=== PATIENT | female | born 1995 | race Caucasian/White ===

== ENCOUNTER 2025-02-05 18:09 | Inpatient (IN) | payer BC, SELFPAY ==
[2025-02-05] MEDS: ACETAMINOPHEN 500 MG TABLET 1000 MG PO ×2 (12:57→19:56)
[2025-02-05] MEDS: ONDANSETRON 2 MG/ML inj 4 MG IVP (12:57)
[2025-02-05 12:58] LABS: Appearance Urine Cloudy (Clear)
[2025-02-05] MEDS: LACTATED RINGERS 1000 ML 1,000 ML IV ×2 (12:58→15:51)
[2025-02-05 13:12] LABS: Trichomonas No Trichomonas Seen (None Seen)
[2025-02-05 13:16] VITALS: BP 108/62; PULSE 75; PULSE 77; RESP 16; TEMP 36.8; O2SAT 100
--- NOTE | 2025-02-05 13:29 | CRLHL7_ITS ---
For Patients: As a result of the Century Cures Act, medical imaging exams and procedure reports are released immediately into your electronic medical record. You may view this report before your referring provider. If you have questions, please contact your health care provider. INDICATION: Decelerations. TECHNIQUE: Ultrasound OB pelvis transabdominal. Real-time lau-scale imaging of the fetus was performed without stress testing. COMPARISON: None. FINDINGS: heart rate: Regular, 152 bpm. position: Vertex. Amniotic fluid volume single deepest pocket 5.8 cm, 2/2. Cine clips not provided, but per radarman the following were observed during the exam: motion 2/2. tone 2/2. breathing movements 2/2. Umbilical artery S/D ratio: Not measured. IMPRESSION: Viable fetus with no abnormality noted on limited exam. Amniotic fluid volume is within expected limits. motion, tone, and breathing movements documented as unremarkable by the radarman, but supporting cine clips not provided. Dictated by Jaiden Engel MD @ 02/05/2025 3:23:47 PM (Electronically Signed)
--- NOTE | 2025-02-05 15:41 | CRLHL7_ITS ---
For Patients: As a result of the Century Cures Act, medical imaging exams and procedure reports are released immediately into your electronic medical record. You may view this report before your referring provider. If you have questions, please contact your health care provider. Indication: Right lower quadrant pain. Technique: MRI of the abdomen without IV contrast appendix protocol for patient. Multiple axial, coronal and sagittal images were obtained including T1 and T2 weighted sequences. Fat-suppressed images were also obtained. Comparison: None Findings: The appendix is identified in the right lower quadrant and demonstrates normal caliber. No periappendiceal fat stranding or periappendiceal free fluid. No bowel obstruction is identified. Visualized portions of the liver, pancreas, spleen and gallbladder are unremarkable. Visualized portions of the adrenal glands are unremarkable. Moderate to severe right-sided hydronephrosis. There filling defects identified on 2 sequences however series 3 demonstrates no filling defect. These are likely related to flow related loss of signal within the ureter. There is compression of the mid to distal ureter between the right psoas and gravid uterus, likely the site of obstruction. No left hydronephrosis or hydroureter. No lymphadenopathy identified. Narrowing of the IVC is noted, otherwise visualized vasculature is unremarkable. Trace intra-abdominal free fluid. No intra-abdominal free air identified. Gravid uterus. Fetus is grossly unremarkable. Anterior placenta. No evidence of previa. Bladder is decompressed. Visualized osseous structures are unremarkable. Impression: 1. Appendix is within normal limits. No evidence of appendicitis. 2. Moderate to severe right-sided hydroureteronephrosis likely related to compression of the mid to distal ureter between the right psoas and uterus. Dictated by Bev Harden MD @ 02/05/2025 5:24:19 PM (Electronically Signed)
[2025-02-05] MEDS: CALCIUM CARBONATE 500 MG CHEW 2000 MG PO (15:50)
--- NOTE | 2025-02-05 15:58 | PM.OBLDTN ---
OB - Triage/Final Diagnosis Visit Information Time Seen by Provider: 15:58 Date Seen: 02/05/25 Date of evaluation: 02/05/25 Narrative: The patient is a 29 year old 3 para 2 at 36.2 weeks gestation by LMP and consistent with 9 week ultrasound, who presents with severe abdominal pain. Patient states she woke this morning feeling a bit off, but then developed severe abdominal and back pain that was so intense she had to call her father (FOB was at work) to help her with her kids. She has felt hot, but no fevers. She reports she had a large bowel movement followed by diarrhea this morning. Had some contractions, but the pain was constant. She denies bleeding, rupture of membranes, urinary symptoms. She has some back pain chronically in this end of , but feels this pain is significantly worse. She has nausea, no vomiting. Reports good movement. Evaluation Cervical dilation (cm): 1 Cervical effacement (%): 0 Laboratory results: Laboratory Tests 02/05/25 02/05/25 Range/Units Unknown 12:40 Urine Color Yellow (Yellow) Urine Appearance Cloudy A (Clear) Urine pH 6.5 (5.0-8.5) Ur Specific [place] 1.020 (1.000-1.030) Urine Protein 1+ A (Negative) Urine Glucose (UA) Negative (Negative) Urine Ketones 3+ A (Negative) Urine Blood 2+ A (Negative) Urine Nitrite Positive A (Negative) Urine Bilirubin Negative (Negative) Urine Urobilinogen 1.0 (0.2-1.0) Ur Leukocyte Esterase 3+ A (Negative) Urine RBC 5-10 A (0-2) Urine WBC 10-25 A (0-5) Urine WBC Clumps Few A (None) Ur Squamous Epith Cells Many A (None-Few) Urine Bacteria Many A (None) Vaginal Trichomonas No Trichomonas Seen (None Seen) Vaginal Yeast No Yeast Seen (None Seen) Vaginal Clue Cells <20% Clue Cells Seen A (None Seen) Group B Strep DNA Pending Vital signs: Vital Signs - 24 hr 02/05/25 13:16 02/05/25 13:16 Temperature 98.2 F Pulse Rate 75 Respiratory Rate 16 Blood Pressure 108/62 Pulse Oximetry 100 Fetus (Single) Heart Rate Baseline: 150 Assisted Variability: Moderate (6-25) Monitor Accelerations: Present
--- NOTE | 2025-02-05 16:03 | PM.OBHPAP1 ---
OB - H&P; HPI Antepartum History of Present Illness Time Seen by Provider: 16:03 Date Seen: 02/05/25 Chief complaint: Maternity Narrative: The patient is a 29 year old 3 para 2 at 36.2 weeks gestation by LMP and consistent with 9 week ultrasound, who presents with severe abdominal pain. Patient states she woke this morning feeling a bit off, but then developed severe abdominal and back pain that was so intense she had to call her father (FOB was at work) to help her with her kids. She has felt hot, but no fevers. She reports she had a large bowel movement followed by diarrhea this morning. Had some contractions, but the pain was constant. She denies bleeding, rupture of membranes, urinary symptoms. She has some back pain chronically in this end of , but feels this pain is significantly worse. She has nausea, no vomiting. Reports good movement. Comments: Presumed macrosomia History of Present Dating criteria: based on LMP (consistent with 9 week ultrasound) care: good care Ultrasounds: normal 1st trimester US and normal mid trimester US Abnormal ultrasound findings: Growth ultrasound shows 88%ile, abdominal circumference >98%ile. complications comment: abnormal 1 hour GTT, normal 3 hour GTT. Labs Blood type: O (+) positive Rubella: immune RPR/VDLR: nonreactive GBS status: unknown (collected today) HBsAG: negative Review of Systems Const: Denies: fever Cardio: Denies: chest pain, palpitations, edema or shortness of breath with exertion Resp: Denies: shortness of breath GI: Reports: abdominal pain, nausea and diarrhea; Denies: vomiting : Reports: pelvic pain; Denies: painful urination, blood in urine, vaginal bleeding or vaginal discharge Musculo: Reports: back pain Integ/Breast: Denies: rash Meds Home Medications and Allergies Allergies Allergy/AdvReac Type Severity Reaction Status Date / Time azithromycin Allergy Unknown Verified 02/05/25 17:52 OB - H&P: Exam Physical Exam: Vital signs: Temp Pulse Resp BP Pulse Ox 98.2 F 75 16 108/62 100 02/05/25 13:16 02/05/25 13:16 02/05/25 13:16 02/05/25 13:16 02/05/25 13:16 Constitutional: Constitutional: no acute distress Comments: appears uncomfortable Routine HEENT Exam: Head: Present atraumatic Routine Neck Exam: Neck: Present full ROM Detailed Neck Exam: Thyroids: Thyroid: Present normal Routine Respiratory Exam: Respiratory: Present CTA bilaterally Routine Cardiovascular Exam: Cardiovascular: RRR, S1 and S2 Routine Abdominal Exam: Abdominal: Present guarding, normal bowel sounds and tenderness (rlq abdominal tenderness with guarding) Comments: Gravid Detailed Labor and Delivery Exam: Patient Gravid: yes Dilation (cm): 1 Effacement (%): 0 Consistency: firm Contraction frequency (min): 3 Tachysystole: No Contraction intensity: Mild Routine Extremities Exam: Extremities: Absent calf tenderness Routine Back/Spine/Pelvis Exam: Back/Spine: full ROM Comments: tender in right lower back. No CVA tenderness Routine Skin Exam: Present intact Routine Neurological Exam: Present alert and oriented X3 Routine Psychiatric Exam: Present normal affect and normal thought process OB - Results Labs Labs: Urine 02/05/25 Range/Units Unknown Urine Color Yellow (Yellow) Urine Appearance Cloudy A (Clear) Urine pH 6.5 (5.0-8.5) Ur Specific [place] 1.020 (1.000-1.030) Urine Protein 1+ A (Negative) Urine Glucose (UA) Negative (Negative) Imaging MRI:: Attestation: I have reviewed the pertinent imaging results. Radiologist's impression: Impression: 1. Appendix is within normal limits. No evidence of appendicitis. 2. Moderate to severe right-sided hydroureteronephrosis likely related to compression of the mid to distal ureter between the right psoas and uterus. BPP: Radiologist's impression: BPP 8/8, normal fluid OB - A/P Antepartum Assessment and Plan (1) with 36 completed weeks gestation: Problem details: Patient has presented at 36 weeks gestation. Status: Acute Assessment and Plan: - 1 cm, thick, high. Is dalton some, palpating mild. Recheck is 1 cm, 60% (2) Abdominal pain affecting : Problem details: UA concerning for UTI, wet prep shows clue cells. However, very tender on RLQ. Discussed with general surgery who recommend MRI to rule out appendicitis. MRI shows right hydronephrosis thought to be 2/2 baby's position, but could be renal stone. Status: Acute Assessment and Plan: - start IV ceftriaxone now for urine - start PO flagyl now for BV - Cr and CBC now (3) Variable deceleration: Problem details: heart monitoring had 2.5 minute variable decel followed by period of tachycardia (180) and minimal variability. BPP 8/8, adequate fluid. Continuing to monitor well being Status: Acute Assessment and Plan: - continuous monitoring was reassuring x 4 hours. - will do NST qshift. (4) Hydronephrosis of right kidney: Problem details: MRI showed: Moderate to severe right-sided hydroureteronephrosis likely related to compression of the mid to distal ureter between the right psoas and uterus. Status: Acute Assessment and Plan: - cr and cbc now - pain control Plan - admit to observation. Patient is still in pain. Ddx includes hydronephrosis, pyelonephritis, musculoskeletal, hydroureteronephrosis. - start tylenol/hydroxyzine q6h prn for pain - monitoring qshift - IV fluids at maintenance - Cr and CBC now - Continue abx (Ceftriaxone was given tonight, PO flagyl started). Additional Plan Total time spent: 120 minutes
[2025-02-05] MEDS: cefTRIAXone 1 GM in 0.9 % SODIUM CHLORIDE Mini-bag 100 ML IVPB (17:02)
[2025-02-05 18:32] LABS: Hematocrit 35.7 % (33.0-51.0); Hemoglobin* 11.7 gm/dL (12.0-16.0); Immature Granulocytes Pct Auto 0.2 %; Mean Corpuscular HGB Conc 33 gm/dL (32-36); Mean Corpuscular Hemoglobin 30 pg (26-34); Mean Corpuscular Volume 91 fL (80-100); RDW Coefficient of Variation % 12.3 % (11.5-15.5); Red Blood Count 3.94 m/uL (4.00-5.20); White Blood Count* 11.15 K/uL (4.50-11.00)
[2025-02-05 18:39] LABS: Immature Granulocytes Abs Auto 0.00 K/uL (0.00-0.30); Lymphocytes Absolute Auto 1.00 K/uL (0.90-2.90); Slide Review Reflex No
[2025-02-05 18:57] LABS: Creatinine* 0.7 mg/dL (0.5-1.5); Estimated Glomerular Filt Rate 121 ml/min
[2025-02-05 19:59] VITALS: BP 110/71; PULSE 82; RESP 16; TEMP 36.6; O2SAT 98
[2025-02-05 23:23] VITALS: BP 99/64; PULSE 88; RESP 16; TEMP 36.8
[2025-02-06] VITALS (136 sets, daily range): BP systolic 100–115; BP diastolic 55–68; PULSE 80–115; RESP 16–18; TEMP 36.6–38.2; O2SAT 93–100
[2025-02-06] MEDS: LACTATED RINGERS 1000 ML 1,000 ML 925 ML IV (00:31)
[2025-02-06] MEDS: CALCIUM CARBONATE 500 MG CHEW PO ×3 (00:36→22:12)
[2025-02-06] MEDS: ONDANSETRON 2 MG/ML inj 4 MG IVP (00:37)
[2025-02-06] MEDS: PIPERACILLIN/TAZOBACTAM 3.375 GM in 0.9 % SODIUM CHLORIDE Mini-bag 100 ML IVPB ×4 (01:28→20:07)
[2025-02-06] MEDS: ACETAMINOPHEN 500 MG TABLET 1000 MG PO ×4 (02:02→19:07)
--- NOTE | 2025-02-06 07:47 | P.GYNPN_ITS ---
Progress Note: A&P Assessment and plan (1) Hydronephrosis of right kidney: Problem details: MRI showed: Moderate to severe right-sided hydroureteronephrosis likely related to compression of the mid to distal ureter between the right psoas and uterus. Spoke with urology who recommended further evaluation with CT abdo/pelvis w/o contrast stone protocol to determine if stone is present. Status: Acute (2) Variable deceleration: Problem details: heart monitoring had 2.5 minute variable decel followed by period of tachycardia (180) and minimal variability. BPP 8/8, adequate fluid. Continuous monitoring for now Status: Acute (3) with 36 completed weeks gestation: Problem details: Patient has presented at 36.2 weeks gestation. GBS pending. Complicated by macrosomia (98th percentile). Status: Acute (4) Abdominal pain affecting : Problem details: UA concerning for UTI, wet prep shows clue cells. However, very tender on RLQ. MRI shows right hydronephrosis thought to be 2/2 baby's position, but could be renal stone. Treated initially with ceftriaxone and flagyl, transitioned to zosyn. Tylenol and vistaril for pain. Can offer lidocaine patch. If severe, please page and can consider fentanyl and further evaluation for worsening symptoms. Status: Acute (5) Pyelonephritis affecting in third trimester: Problem details: Awaiting urine culture. On zosyn. Recommend at least 24 hours zosyn prior to transitioning to PO. I spoke with urology at [place] who recommended CT abdo/pelvis stone protocol to further differentiate obstruction. If stone, she likely will need a stent if we thought she was septic. If no stone and thought due to baby position then we have to determine if monitor in hospital until 37w vs induce/deliver. Status: Acute Plan - q24h CBC/BMP - Zosyn q6h, continue flagyl for BV for now. - CT abdo/pelvis wo stone protocol - If obstructing stone, will need to transfer to higher level of care for definitive management - If no stone, will discuss continue to monitor in hospital until 37w vs deliver - Continuous monitoring - Pain: tylenol, vistaril, lidocaine patch. If severe, contact provider. SHIPFITTER APPRENTICE- PN:Subj Non-OR Subjective Date Seen: 02/06/25 Interval history: Patient is a 29-year-old at 36 and 3 by LMP consistent with 9 week ultrasound to presented with severe abdominal pain and hospitalized for pyelonephritis and hydronephrosis in . Patient was initially started IV ceftriaxone p.o. Flagyl for BV. heart rate initially had variable decelerations with periodic tachycardia and minimal variability. BPP was 8/8 yesterday. MRI was performed to rule out appendicitis. It did show a right hydronephrosis but could be a renal stone. Overnight around midnight there was tachycardia to 200 beats per minute. Patient was given a dose Tylenol and IV fluid bolus.. Dr Gómez spoke with MPP who recommended to broaden antibiotics to Zosyn. MP recommended a consult Urology if patient did not have improvement in the morning. There was a tachycardia intermittently throughout the night into morning. Patient continues to have right flank pain that is somewhat managed with Tylenol and Vistaril. She no longer is having diarrhea. She is drinking fluids. SHIPFITTER APPRENTICE-PN: Obj Exam Physical Exam: Vital signs: Temp Pulse Resp BP Pulse Ox 98.2 F 81 16 109/62 100 02/06/25 05:31 02/06/25 06:02 02/05/25 23:23 02/06/25 06:02 02/06/25 07:45 Narrative: Gen: No acute distress, lying comfortably in bed CV: regular rate and rhythm Pulm: Breathing comfortably on room air, good air movement Abdo: Right flank, suprapubic and abdominal pain on exam FHT: moderate variability, baseline 155-165 bpm for the last 1 hour, accels present, no decels. Not dalton. Overnight had marked variability at times with HR max 200bpm, variable decels and accels. SHIPFITTER APPRENTICE - PN: Obj Data Labs Labs: Laboratory Results - last 24 hr 02/05/25 02/05/25 02/05/25 12:40 18:22 Unknown WBC 11.15 H RBC 3.94 L Hgb 11.7 L Hct 35.7 MCV 91 MCH 30 MCHC 33 RDW Coeff of Ayla 12.3 Plt Count 204 Neut % (Auto) 82.7 H Lymph % (Auto) 8.7 L [place] % (Auto) 8.2 Eos % (Auto) 0.0 Baso % (Auto) 0.2 Neut # (Auto) 9.20 H Lymph # (Auto) 1.00 [place] # (Auto) 0.90 Eos # (Auto) 0.00 Baso # (Auto) 0.00 Abs Immat Gran (auto) 0.00 Imm/Tot Granulo (auto) 0.2 Creatinine 0.7 Estimated GFR 121 Urine Color Yellow Urine Appearance Cloudy A Urine pH 6.5 Ur Specific [place] 1.020 Urine Protein 1+ A Urine Glucose (UA) Negative Urine Ketones 3+ A Urine Blood 2+ A Urine Nitrite Positive A Urine Bilirubin Negative Urine Urobilinogen 1.0 Ur Leukocyte Esterase 3+ A Urine RBC 5-10 A Urine WBC 10-25 A Urine WBC Clumps Few A Ur Squamous Epith Cells Many A Urine Bacteria Many A Vaginal Trichomonas No Trichomonas Seen Vaginal Yeast No Yeast Seen Vaginal Clue Cells <20% Clue Cells Seen A
[2025-02-06 09:14] LABS: Hematocrit 31.9 % (33.0-51.0); Hemoglobin* 10.5 gm/dL (12.0-16.0); Immature Granulocytes Abs Auto 0.04 K/uL (0.00-0.30); Immature Granulocytes Pct Auto 0.5 %; Mean Corpuscular HGB Conc 33 gm/dL (32-36); Mean Corpuscular Hemoglobin 30 pg (26-34); Mean Corpuscular Volume 91 fL (80-100); RDW Coefficient of Variation % 12.3 % (11.5-15.5); Red Blood Count 3.51 m/uL (4.00-5.20); White Blood Count* 8.83 K/uL (4.50-11.00)
[2025-02-06 09:15] LABS: Lymphocytes Absolute Auto 0.70 K/uL (0.90-2.90); Slide Review Reflex No
[2025-02-06 09:26] LABS: Chloride* 107 mmol/L (96-114)
[2025-02-06 09:27] LABS: Potassium* 3.9 mmol/L (3.6-5.1); Sodium* 133 mmol/L (135-149)
[2025-02-06 09:30] LABS: Anion Gap 6 mEq/L (7-15); Blood Urea Nitrogen* 5 mg/dL (5-24); Calcium* 8.7 mg/dL (8.4-10.6); Carbon Dioxide* 20 mmol/L (20-32); Creatinine* 0.7 mg/dL (0.5-1.5); Estimated Glomerular Filt Rate 121 ml/min; Glucose* 142 mg/dL (60-115)
--- NOTE | 2025-02-06 09:40 | CRLHL7_ITS ---
For Patients: As a result of the Century Cures Act, medical imaging exams and procedure reports are released immediately into your electronic medical record. You may view this report before your referring provider. If you have questions, please contact your health care provider. INDICATION: Thirty-six weeks with right flank pain and urinary tract dilatation seen on MRI. COMPARISON: Ob ultrasound 02/05/2025, MR abdomen 02/05/2025, prior CT abdomen pelvis 03/26/2014 TECHNIQUE: CT of the abdomen and pelvis without intravenous contrast. Multiplanar axial, coronal, and sagittal reformats were reconstructed. Contrast: None. FINDINGS: Lung bases: Normal. Liver: Normal. No mass. Gallbladder and bile ducts: Normal gallbladder. No bile duct dilation. Pancreas: Normal. Spleen: Normal. Adrenal glands: Normal. Kidneys: Normal overall renal size and position with a few areas of renal parenchymal scarring. There is not a contour deforming cyst or mass. There are 2 right renal calculi that measure 2 millimeters and 4 millimeters. There is right pelvicaliectasis with distention of both the peripheral and central calices. There is right ureterectasis. The right ureter is dilated to the level of the pelvic brim where it passes between the psoas muscle and the gravid uterus. The right distal ureter is not dilated. There are no calculi along the expected course of the right distal ureter. No left-sided urinary tract dilatation or left-sided urinary tract calculi. Urinary bladder: Partially filled and unremarkable. Pelvis: Gravid uterus. Single intrauterine gestation in cephalic presentation facing towards the maternal right. This examination is not tailored to assess the fetus. No major anatomic abnormalities are identified. Fetus generally consistent with a near term gestation. Amniotic fluid volume appears normal. The placenta is anterior. Maternal cervix not clearly delineated on this noncontrast examination. Vessels: Normal. Bowel: No dilated or inflamed bowel. Normal appendix. Moderate stool burden. Lymph nodes: No adenopathy. Peritoneum: No ascites. Abdominal wall: No hernia. Bones: No fractures. No focal worrisome bone lesions. IMPRESSION: Right pelvicaliectasis and proximal ureterectasis. There are some nonobstructing right intrarenal calculi but no ureteral calculi are seen. Urinary tract dilatation appears to be due to compression from the gravid uterus. Please note that all CT scans at this facility use dose modulation, iterative reconstruction, and/or weight-based dosing when appropriate to reduce radiation dose to as low as reasonably achievable. Dictated by Camila Saucedo MD @ 02/06/2025 10:47:21 AM (Electronically Signed)
[2025-02-06 12:08] LABS: Strep B DNA Probe Negative (Negative)
[2025-02-06 12:58] LABS: Strep B Susceptibility Needed? No
[2025-02-07] VITALS (11 sets, daily range): BP systolic 94–136; BP diastolic 52–76; PULSE 62–84; RESP 16–22; TEMP 36.3–37; O2SAT 96–99
[2025-02-07] MEDS: CALCIUM CARBONATE 500 MG CHEW PO ×2 (00:34→10:31)
[2025-02-07] MEDS: ACETAMINOPHEN 500 MG TABLET 1000 MG PO ×3 (00:57→21:48)
[2025-02-07] MEDS: PIPERACILLIN/TAZOBACTAM 3.375 GM in 0.9 % SODIUM CHLORIDE Mini-bag 100 ML IVPB ×4 (02:06→19:59)
--- NOTE | 2025-02-07 07:54 | P.GYNPN_ITS ---
Progress Note: A&P Assessment and plan (1) Pyelonephritis affecting in third trimester: Problem details: On zosyn for 29+ hours now. Overall clinically improving as per HPI. Recommend afebrile at least 24 hours and continued improvement prior to changing to oral abxs (last fever 2pm yesterday) Status: Acute (2) Hydronephrosis of right kidney: Problem details: MRI showed: Moderate to severe right-sided hydroureteronephrosis likely related to compression of the mid to distal ureter between the right psoas and uterus. CT without ureteral stone. Urology noted they would only stent if stone as this stage in . Status: Acute (3) with 36 completed weeks gestation: Problem details: Patient has presented at 36.4 weeks gestation. GBS negative. Complicated by macrosomia (98th percentile). Status: Acute (4) Abdominal pain affecting : Problem details: MRI shows right hydronephrosis thought to be 2/[address] negative for stone. Treated initially with ceftriaxone and flagyl, transitioned to zosyn. Tylenol and vistaril for pain. +urine culture ecoli live senstiive and wet prep +BV. Vaginal sxs resolved with treatment. Labs this am pending. Abdominal pain improving with current treatment. see above, continue same for now. IF afebrile >24 hours, continues to feel clinical improvement and FHT continue to be improved, would consider changing to oral abxs and possible d/c late today or tomorrow pending course. Status: Acute Time Spent With Patient Total time spent: 65min TUBE ROOM SUPERVISOR- PN:Subj Non-OR Subjective Time Seen by Provider: 07:30 Date Seen: 02/07/25 Interval history: Patient is a 29-year-old at 36 and 3 by LMP consistent with 9 week ultrasound to presented with severe right lower abdominal pain/right lower back pain and hospitalized for pyelonephritis and hydronephrosis in . Patient was initially started IV ceftriaxone p.o. Flagyl for BV. heart rate initially had variable decelerations with periodic tachycardia and minimal variability. BPP was 8/8 yesterday. MRI was performed to rule out appendicitis. It did show a right hydronephrosis but could be a renal stone. Overnight 02/05-02/06 there was tachycardia to 200 beats per minute. Patient was given a dose Tylenol, IV fluid bolus and Dr Gómez spoke with MPP who recommended to broaden antibiotics to Zosyn. Zosyn started 02/06/[address] Bergeron spoke with urology 02/07/24 morning and they rec CT to further evaluate for ureteral stone. CT did NOT show any ureteral stones and urology reported they would only rec stenting if ureteral stones present, see Dr Bergeron note for details. Case was also discussed with local ARTIST AND REPERTOIRE MANAGER provider solutions manager who recommended discussing with MPP further if pain thought from hydronephroureter and not improving as would need their recommendation if considering induction since . Pt reports this morning she is definitely feeling better then when she came into hospital. She notes the prev constant RLQ pain has basically resolved and only feels mildly at times with intermittent ctxs. These ctxs are random, come and go and no regular pattern or persistence. she reports she relates to contractions now and not like was when she came in. She reports her vaginal pain and swelling have resolved. Her right lower back pain and overall feeling is much better at t imes. says she feels good at times. However she notes it seems as when the tylenol starts to wear off she can still feel icky overall and pain in back will only be little better then. 'It goes in waves' Prev was constant. Currently she has not had tylenol for 6+ hours and reports feeling pretty good. Dysuria has resolved. she is tolerating orals, ambulating and voiding. tachycardia has resolved. TUBE ROOM SUPERVISOR-PN: Obj Exam Physical Exam: Vital signs: Temp Pulse Resp BP Pulse Ox 98.2 F 69 16 107/69 96 02/07/25 03:05 02/07/25 07:49 02/07/25 03:05 02/07/25 07:49 02/07/25 03:05 Constitutional: Constitutional: no acute distress and cooperative Routine Abdominal Exam: Abdominal: Absent rebound or tenderness Comments: uterus gravid, Nttp. No abd ttp. Routine Exam: External: Present normal external exam; Absent tenderness or swelling Comments: Gentle bimanual nttp. gentle exam cervix external os 1cm, thick,-3. Additional findings: Additional findings: FHT's 120's moderate variability, +accels, occ variable, improved from prior TUBE ROOM SUPERVISOR - PN: Obj Data Labs Labs: Laboratory Results - last 24 hr 02/05/25 02/06/25 12:40 09:07 WBC 8.83 RBC 3.51 L Hgb 10.5 L Hct 31.9 L MCV 91 MCH 30 MCHC 33 RDW Coeff of Ayla 12.3 Plt Count 187 Neut % (Auto) 84.3 H Lymph % (Auto) 8.2 L [place] % (Auto) 6.7 Eos % (Auto) 0.1 Baso % (Auto) 0.2 Neut # (Auto) 7.40 H Lymph # (Auto) 0.70 L [place] # (Auto) 0.60 Eos # (Auto) 0.01 Baso # (Auto) 0.02 Abs Immat Gran (auto) 0.04 Imm/Tot Granulo (auto) 0.5 Sodium 133 L Potassium 3.9 Chloride 107 Carbon Dioxide 20 Anion Gap 6 L BUN 5 Creatinine 0.7 Estimated GFR 121 Glucose 142 H Calcium 8.7 Group B Strep DNA Negative
[2025-02-07 08:19] LABS: Hematocrit 31.4 % (33.0-51.0); Hemoglobin* 10.1 gm/dL (12.0-16.0); Immature Granulocytes Abs Auto 0.07 K/uL (0.00-0.30); Immature Granulocytes Pct Auto 1.1 %; Mean Corpuscular HGB Conc 32 gm/dL (32-36); Mean Corpuscular Hemoglobin 30 pg (26-34); Mean Corpuscular Volume 93 fL (80-100); RDW Coefficient of Variation % 12.8 % (11.5-15.5); Red Blood Count 3.37 m/uL (4.00-5.20); White Blood Count* 6.34 K/uL (4.50-11.00)
[2025-02-07 08:26] LABS: Lymphocytes Absolute Auto 1.10 K/uL (0.90-2.90); Slide Review Reflex No
[2025-02-07 08:39] LABS: Chloride* 111 mmol/L (96-114); Potassium* 3.7 mmol/L (3.6-5.1); Sodium* 134 mmol/L (135-149)
[2025-02-07 08:40] LABS: Albumin* 2.8 g/dL (3.3-5.0)
[2025-02-07 08:42] LABS: Anion Gap 5 mEq/L (7-15); Blood Urea Nitrogen* 3 mg/dL (5-24); Calcium* 8.5 mg/dL (8.4-10.6); Carbon Dioxide* 18 mmol/L (20-32); Creatinine* 0.6 mg/dL (0.5-1.5); Estimated Glomerular Filt Rate 125 ml/min; Glucose* 74 mg/dL (60-115)
[2025-02-07 08:43] LABS: Alanine Aminotransferase* 38 U/L (4-35); Alkaline Phosphatase* 121 U/L (40-150); Aspartate Amino Transferase* 79 U/L (12-35); Bilirubin Direct* 0.2 mg/dL (0.0-0.5); Bilirubin Total* 0.6 mg/dL (0.1-1.5); Total Protein* 5.6 g/dL (6.0-8.3)
[2025-02-07] MEDS: SUCRALFATE 1 GM TABLET PO ×2 (16:43→19:59)
--- NOTE | 2025-02-07 18:13 | P.OBPN_ITS ---
Subjective Time Seen by Provider: 18:14 Date Seen: 02/07/25 Narrative: Pt seen this evening for follow up. Pt reports midmorning right lower back pain seemed more constant and similar to when came into triage. Other symptoms remained improved but the pain in right lower back seemed similar to arrival again. I discussed with pt via phone from clinic at that time. Reviewed pain and making sure not sign of worsening infection or other etiology. Discussed pain control. Decision to stop scheduled tylenol to help know if actual fevers and try oxycodone 5mg [id number] for severe pain. Pt agreed to let us know if felt like pain worsening. 5mg oxycodone was helpful in making pain more tolerable and pt reports worked well for 2-3 hours then pain started increasing and nursing requested more frequent dosing oxycodone. Decision to try 5mg oxycodone with hydroxyzine and may give q4-6 hours but aim for [id number] as needed. Pt got first combo dose 5 hours after the initial oxycodone. Pt reports tonight this made pain much more tolerable. RN reports she seems to be doing better this afternoon. Pt reports overall not feeling 'sick' today like yesterday. Right lower back pain has constant component but then is more intense at times. Overall she feels like things are improving but at times pain can still be intense she says. pt does feel irregular contractions, nothing regular or persistent No fevers today. No tachycardia today. Last fever 2pm on 02/06/25 First dose IV Zosyn around 2am 02/06/[address] showing ureteralhydronephrosis from gravid uterus, see prior hospital notes and CT below Recent CT Kidneys: Normal overall renal size and position with a few areas of renal parenchymal scarring. There is not a contour deforming cyst or mass. There are 2 right renal calculi that measure 2 millimeters and 4 millimeters. There is right pelvicaliectasis with distention of both the peripheral and central calices. There is right ureterectasis. The right ureter is dilated to the level of the pelvic brim where it passes between the psoas muscle and the gravid uterus. The right distal ureter is not dilated. There are no calculi along the expected course of the right distal ureter. No left-sided urinary tract dilatation or left-sided urinary tract calculi. Urinary bladder: Partially filled and unremarkable. Pelvis: Gravid uterus. Single intrauterine gestation in cephalic presentation facing towards the maternal right. This examination is not tailored to assess the fetus. No major anatomic abnormalities are identified. Fetus generally consistent with a near term gestation. Amniotic fluid volume appears normal. The placenta is anterior. Maternal cervix not clearly delineated on this noncontrast examination. Vessels: Normal. Bowel: No dilated or inflamed bowel. Normal appendix. Moderate stool burden. Lymph nodes: No adenopathy. Peritoneum: No ascites. Abdominal wall: No hernia. Bones: No fractures. No focal worrisome bone lesions. IMPRESSION: Right pelvicaliectasis and proximal ureterectasis. There are some nonobstructing right intrarenal calculi but no ureteral calculi are seen. Urinary tract dilatation appears to be due to compression from the gravid uterus. Objective Vital Signs: Last Vital Signs Temp 97.5 F L 02/07/25 15:35 Pulse 64 02/07/25 15:35 Resp 22 02/07/25 15:35 BP 106/60 02/07/25 15:35 Pulse Ox 99 02/07/25 15:35 Contractions Contraction pattern: Irregular Contraction intensity: Mild Assessment Heart Rate Baseline: 150 Prison Variability: Moderate (6-25) Monitor Accelerations: Present Monitor Decelerations: Variable Plan Plan: Assessment and plan at 36 4/7wks gestation admitted with severe RLQ and right lower back pain, evaluated with labs, urine, US, MRI and CT and found to have pyelonephritis with hydroureteronephrosis. CT without ureteral stone. Urology noted since hydroureteronephrosis not from stone and instead from gravid uterus and close to term, they would not place stent. (1) Pyelonephritis affecting in third trimester: Problem details: On zosyn for 40+ hours now. Overall clinically improving (afebrile, tachycardia resolved, RLQ pain resolved, Dysuria and vaginal pain resolved). Per UTD, rec afebrile at least 48 hours and continued improvement prior to changing to oral abxs (last fever 2pm yesterday). Urine culture pansenstivie and rec switch to betalactam (likely cefdinir) after afebrile 48 hours. Status: Acute (2) Hydroureteronephrosis: Problem details: MRI showed: Moderate to severe right-sided hydroureteronephrosis likely related to compression of the mid to distal ureter between the right psoas and uterus. CT without ureteral stone. Urology noted they would only stent if stone as this stage in . Pyelonephritis sxs clinically improving overall but with persistent Right lower back pain thought from hydroureteronephrosis. Again discussed risks vs benefits narcotics in for mom and fetus/. Discussed with [facility] nelda Meade regarding all above, pain control and timing of induction if continues to require narcotics. She reported if urology thought hydroureteronephrosis from and requiring narcotics, reasonable and okay to induce at 37wks. discussed with patient risks vs benefits of induction at 37wks and pt would like to pursue if still having pain requiring oxycodone. If so, plan cervical ripening Tuesday evening with Nikunj and induction Tuesday morning with Dr Lane. Status: Acute (3) with 36 completed weeks gestation: Problem details: Currently 36.4 weeks gestation. GBS negative. Complicated by macrosomia (98th percentile). Status: Acute (4) Abdominal pain affecting : Problem details: see above and prior notes. (5) Elevated AST: suspect unrelated to pain. No prior for comparison. BP's wnl. Plan recheck in am. Continue IV abx until afebrile 48 hours then plan transition to cefdinir Continue oxycodone and hydroxyzine q4-6 hours as needed. Recheck labs in morning If continues to improve, possible d/c later tomorrow with cervical ripeni ng/induction scheduled Tuesday/Tuesday if continues to need oxycodone for pain control
[2025-02-07] MEDS: LIDOCAINE 5% PATCH 1 PATCH TRANSDERMA (22:14)
[2025-02-07] MEDS: ONDANSETRON 2 MG/ML inj 4 MG IVP (22:17)
[2025-02-07] MEDS: SODIUM CHLORIDE 0.9 % (FLUSH) 10 ML SYRINGE IVF (22:35)
[2025-02-08] VITALS (9 sets, daily range): BP systolic 103–117; BP diastolic 57–75; PULSE 56–75; RESP 16–18; TEMP 36.3–37.3; O2SAT 96–99
[2025-02-08] MEDS: PIPERACILLIN/TAZOBACTAM 3.375 GM in 0.9 % SODIUM CHLORIDE Mini-bag 100 ML IVPB ×3 (02:24→13:44)
[2025-02-08] MEDS: CALCIUM CARBONATE 500 MG CHEW PO (03:52)
[2025-02-08] MEDS: ONDANSETRON 2 MG/ML inj 4 MG IV (03:55)
[2025-02-08 06:38] LABS: Hematocrit 32.7 % (33.0-51.0); Hemoglobin* 10.6 gm/dL (12.0-16.0); Immature Granulocytes Abs Auto 0.03 K/uL (0.00-0.30); Immature Granulocytes Pct Auto 0.5 %; Lymphocytes Absolute Auto 1.29 K/uL (0.90-2.90); Mean Corpuscular HGB Conc 32 gm/dL (32-36); Mean Corpuscular Hemoglobin 30 pg (26-34); Mean Corpuscular Volume 92 fL (80-100); RDW Coefficient of Variation % 12.8 % (11.5-15.5); Red Blood Count 3.57 m/uL (4.00-5.20); White Blood Count* 5.52 K/uL (4.50-11.00)
[2025-02-08 06:41] LABS: Slide Review Reflex No
[2025-02-08 06:56] LABS: Chloride* 109 mmol/L (96-114); Potassium* 3.7 mmol/L (3.6-5.1); Sodium* 134 mmol/L (135-149)
[2025-02-08 06:59] LABS: Alanine Aminotransferase* 40 U/L (4-35); Anion Gap 6 mEq/L (7-15); Aspartate Amino Transferase* 63 U/L (12-35); Blood Urea Nitrogen* 3 mg/dL (5-24); Calcium* 8.8 mg/dL (8.4-10.6); Carbon Dioxide* 19 mmol/L (20-32); Creatinine* 0.6 mg/dL (0.5-1.5); Estimated Glomerular Filt Rate 125 ml/min; Glucose* 81 mg/dL (60-115)
--- NOTE | 2025-02-08 07:45 | P.OBPN_ITS ---
Subjective Date Seen: 02/08/25 Narrative: Pt seen this morning. Had severe pain 8/10 overnight. Typically happens at night. She was given 5mg oxycodone and hydroxyzine and subsequently another 5mg oxycodone, tylenol and lidocaine patch. She states she fell asleep and pain was better when she woke up. She continues to be afebrile. No tachycardia overnight. Her creatinine is normal. White count has normalized. She has elevated AST/ALT with improvement from yesterday, unknown baseline. Last fever 2pm on 02/06/25. First dose IV Zosyn around 2am 02/06/25. Objective Exam: FHT: Category [], [Moderate] Variability. [Positive] Accels. [No] decels. Baseline []. [place]: Ctx q[] min, [pitocin rate] SVE: [] cm / [] % / -[] / [vertex] Vital Signs: Last Vital Signs Temp 97.4 F L 02/08/25 07:04 Pulse 68 02/08/25 06:58 Resp 20 02/07/25 23:00 BP 111/69 02/08/25 06:58 Pulse Ox 96 02/08/25 02:54 Contractions Contraction pattern: Irregular Contraction intensity: Mild Assessment Assessment: active labor Heart Rate Baseline: 150 Monitor Accelerations: Present Monitor Decelerations: Variable Plan Plan: - Continue current cares. - Analgesia PRN. - Anticipate .
[2025-02-08 08:09] LABS: Hematocrit 32.9 % (33.0-51.0); Hemoglobin* 10.7 gm/dL (12.0-16.0); Immature Granulocytes Abs Auto 0.03 K/uL (0.00-0.30); Immature Granulocytes Pct Auto 0.5 %; Lymphocytes Absolute Auto 1.42 K/uL (0.90-2.90); Mean Corpuscular HGB Conc 33 gm/dL (32-36); Mean Corpuscular Hemoglobin 30 pg (26-34); Mean Corpuscular Volume 92 fL (80-100); RDW Coefficient of Variation % 12.9 % (11.5-15.5); Red Blood Count 3.56 m/uL (4.00-5.20); White Blood Count* 5.52 K/uL (4.50-11.00)
[2025-02-08 08:35] LABS: Chloride* 108 mmol/L (96-114)
[2025-02-08 08:36] LABS: Potassium* 3.8 mmol/L (3.6-5.1); Sodium* 134 mmol/L (135-149)
[2025-02-08 08:39] LABS: Anion Gap 5 mEq/L (7-15); Blood Urea Nitrogen* 4 mg/dL (5-24); Calcium* 8.7 mg/dL (8.4-10.6); Carbon Dioxide* 21 mmol/L (20-32); Creatinine* 0.7 mg/dL (0.5-1.5); Estimated Glomerular Filt Rate 121 ml/min; Glucose* 74 mg/dL (60-115)
[2025-02-08 08:40] LABS: Slide Review Reflex No
[2025-02-08 08:51] LABS: Blood Urea Nitrogen* 4 mg/dL (5-24); Creatinine* 0.7 mg/dL (0.5-1.5); Estimated Glomerular Filt Rate 121 ml/min
[2025-02-08] MEDS: SUCRALFATE 1 GM TABLET PO ×2 (09:58→13:44)
--- NOTE | 2025-02-08 14:31 | REH.PT ---
Order for trial of brace or taping from PT received. Patient chose taping and PT obtained KT Gold and used space correction technique over symptomatic right SIJ with instructions to remove if itching and limit soaking and patient and given instruction on how to repeat taping technique and extra tape if the technique is helpful and she wants to retape. No charge for visit as no formal evaluation done and patient is I in transfers out of bed and ambulating without a device.
--- NOTE | 2025-02-08 14:33 | P.DS_ITS ---
DS: Providers Provider Date Seen: 02/08/25 Date of admission: 02/07/25 09:32 Primary care physician: Khushboo Lane MD Admitting Clinician: Sade Gómez MD Consults: 02/08/25 08:09 Consult to Physical Therapy [CONS] Routine Comment: would a belt/kinesotape be helpful for r back pain Reason(s) for PT Consult:: Pain Any Restrictions?:: No Restrictions Attending Physician on discharge: Nieves Bergeron MD Date of Discharge: 02/08/25 DS: Diagnosis Discharge Diagnosis (1) Pyelonephritis affecting in third trimester: Status: Acute Problem details: Last fever at 2pm on 02/06. On zosyn for 48+ hours. Urine culture with live- sensitive E coli. Transition to complete total 10-day course of antibiotics on cefdinir. Overall clinically improving. Pain persists. (2) Hydronephrosis of right kidney: Status: Acute Problem details: MRI/CT showed: Moderate to severe right-sided hydroureteronephrosis likely related to compression of the mid to distal ureter between the right psoas and uterus. CT without ureteral stone. Urology noted they would only stent if stone at this stage in . (3) with 36 completed weeks gestation: Status: Acute Problem details: Patient had presented at 36.4 weeks gestation. GBS negative. Complicated by macrosomia (98th percentile). (4) Abdominal pain affecting : Status: Acute Problem details: MRI/CT shows right hydroureteronephrosis thought to be 2/[address] negative for stone. Pain is limiting and requiring Q6H oxycodone to manage. PT consulted for MSK support. (5) Bacterial vaginosis in : Status: Acute Problem details: Complete a 7-day course of PO BID metronidazole Discharge Plan Discharge Disposition: Home, Self-Care Date of Admission: 02/07/25 09:32 Attending Provider on Discharge: Nieves Bergeron Primary Care Provider: Khushboo Lane Condition: Improved Anticipated Discharge Date/Time: 02/08/25 14:39 Discharge Medications: New metronidazole 500 mg Tablet 500 mg PO Q12H 4 Days Qty: 8 0RF oxycodone 5 mg Tablet 5 mg PO Q4H PRN (Reason: For SEVERE Pain) 3 Days Qty: 12 0RF cefdinir 300 mg capsule 300 mg PO BID 8 Days Qty: 16 0RF Discharge Orders: Discharge Order (Routine); Ordered 02/08/25 Ordered By: Nieves Bergeron Patient Education: Kidney Infection (DC) Additional Instructions: Please start oral antibiotics at home. Take both cefdinir and metronidazole at around 9:30PM tonight then twice daily until gone. For pain control: recommend tylenol 1000mg every 6 hours as needed, lidocaine patch over the counter (ex: Salonpas), and oxycodone 5mg every 6 hours as needed. If you are needing the oxycodone regularly due to pain, then we will move forward with induction on Tuesday (02/10). Plan is to place a Cook catheter. Activity Level: Activity as Tolerated Discharge Diet: Regular Follow Up Appointments: Khushboo Lane MD [Primary Care Provider, [facility]] Forms: Patient Belongings, [facility] Info Instructions Hospital Course Course Hospital Course: at 36 4/7wks gestation admitted with severe RLQ and right lower back pain, evaluated with labs, urine, US, MRI and CT and found to have pyelonephritis with hydroureteronephrosis. CT without ureteral stone. Urology noted since hydroureteronephrosis not from stone and instead from gravid uterus and close to term, they would not place stent. Patient was afebrile for 48 hours before transition for IV to PO antibiotics. Patient pain not fully controlled with tylenol required oxycodone. PT consulted to provide pain support for symptomatic right SIJ, taping performed. Case discussed with MPP who stated if pain persisted with necessity for opioid pain control and hydroureteronephrosis related to , ok for IOL at 37 weeks gestation. Plan to induce patient on 02/10 at 37 weeks GA via Cook catheter. If pain improves and is not requiring oxycodone at home, plan to hold cancel induction with close follow-up in clinic. Based on Up-to-date, if patient remains she should be on antibiotic prophylaxis until delivery to prevent recurrence of pyelonephritis. Pt seen this morning. Had severe pain 8/10 overnight. Typically happens at night. She was given 5mg oxycodone and hydroxyzine and subsequently another 5mg oxycodone, tylenol and lidocaine patch. She states she fell asleep and pain was better when she woke up. She continues to be afebrile. No tachycardia overnight. Her creatinine is normal. White count has normalized. She has elevated AST/ALT with improvement from yesterday, unknown baseline. Not felt to be related to current presentation. Last fever 2pm on 02/06/25. First dose IV Zosyn around 2am 02/06/25. Labs Labs: Laboratory Tests 02/08/25 02/08/25 02/08/25 Range/Units 08:19 08:03 06:25 WBC 5.52 5.52 (4.50-11.00) K/uL RBC 3.56 L 3.57 L (4.00-5.20) m/uL Hgb 10.7 L 10.6 L (12.0-16.0) gm/dL Hct 32.9 L 32.7 L (33.0-51.0) % MCV 92 92 (80-100) fL MCH 30 30 (26-34) pg MCHC 33 32 (32-36) gm/dL RDW Coeff of Ayla 12.9 12.8 (11.5-15.5) % Plt Count 180 179 (140-440) K/uL Neut % (Auto) 60.0 63.4 (42.0-72.0) % Lymph % (Auto) 25.7 23.4 (20-44) % [place] % (Auto) 12.1 H 11.1 H (0.0-11.0) % Eos % (Auto) 1.3 1.4 (0.0-7.0) % Baso % (Auto) 0.4 0.2 (0.0-3.0) % Neut # (Auto) 3.31 3.50 (1.7-7.0) K/uL Lymph # (Auto) 1.42 1.29 (0.90-2.90) K/uL [place] # (Auto) 0.70 0.60 (0.00-0.90) K/UL Eos # (Auto) 0.07 0.08 (0.00-0.50) K/uL Baso # (Auto) 0.02 0.01 (0.00-0.30) K/uL Abs Immat Gran (auto) 0.03 0.03 (0.00-0.30) K/uL Imm/Tot Granulo (auto) 0.5 0.5 % Sodium 134 L 134 L (135-149) mmol/L Potassium 3.8 3.7 (3.6-5.1) mmol/L Chloride 108 109 (96-114) mmol/L Carbon Dioxide 21 19 L (20-32) mmol/L Anion Gap 5 L 6 L (7-15) mEq/L BUN 4 L 4 L 3 L (5-24) mg/dL Creatinine 0.7 0.7 0.6 (0.5-1.5) mg/dL Estimated GFR 121 121 125 ml/min Glucose 74 81 (60-115) mg/dL Calcium 8.7 8.8 (8.4-10.6) mg/dL Total Bilirubin (0.1-1.5) mg/dL Direct Bilirubin (0.0-0.5) mg/dL AST 63 H (12-35) U/L ALT 40 H (4-35) U/L Alkaline Phosphatase (40-150) U/L Total Protein (6.0-8.3) g/dL Albumin (3.3-5.0) g/dL Urine Color (Yellow) Urine Appearance (Clear) Urine pH (5.0-8.5) Ur Specific [place] (1.000-1.030) Urine Protein (Negative) Urine Glucose (UA) (Negative) Urine Ketones (Negative) Urine Blood (Negative) Urine Nitrite (Negative) Urine Bilirubin (Negative) Urine Urobilinogen (0.2-1.0) Ur Leukocyte Esterase (Negative) Urine RBC (0-2) Urine WBC (0-5) Urine WBC Clumps (None) Ur Squamous Epith Cells (None-Few) Urine Bacteria (None) Vaginal Trichomonas (None Seen) Vaginal Yeast (None Seen) Vaginal Clue Cells (None Seen) Group B Strep DNA (Negative) 02/07/25 02/06/25 02/05/25 Range/Units 08:13 09:07 Unknown WBC 6.34 8.83 (4.50-11.00) K/uL RBC 3.37 L 3.51 L (4.00-5.20) m/uL Hgb 10.1 L 10.5 L (12.0-16.0) gm/dL Hct 31.4 L 31.9 L (33.0-51.0) % MCV 93 91 (80-100) fL MCH 30 30 (26-34) pg MCHC 32 33 (32-36) gm/dL RDW Coeff of Ayla 12.8 12.3 (11.5-15.5) % Plt Count 164 187 (140-440) K/uL Neut % (Auto) 70.0 84.3 H (42.0-72.0) % Lymph % (Auto) 16.7 L 8.2 L (20-44) % [place] % (Auto) 10.9 6.7 (0.0-11.0) % Eos % (Auto) 1.1 0.1 (0.0-7.0) % Baso % (Auto) 0.2 0.2 (0.0-3.0) % Neut # (Auto) 4.44 7.40 H (1.7-7.0) K/uL Lymph # (Auto) 1.10 0.70 L (0.90-2.90) K/uL [place] # (Auto) 0.70 0.60 (0.00-0.90) K/UL Eos # (Auto) 0.07 0.01 (0.00-0.50) K/uL Baso # (Auto) 0.01 0.02 (0.00-0.30) K/uL Abs Immat Gran (auto) 0.07 0.04 (0.00-0.30) K/uL Imm/Tot Granulo (auto) 1.1 0.5 % Sodium 134 L 133 L (135-149) mmol/L Potassium 3.7 3.9 (3.6-5.1) mmol/L Chloride 111 107 (96-114) mmol/L Carbon Dioxide 18 L 20 (20-32) mmol/L Anion Gap 5 L 6 L (7-15) mEq/L BUN 3 L 5 (5-24) mg/dL Creatinine 0.6 0.7 (0.5-1.5) mg/dL Estimated GFR 125 121 ml/min Glucose 74 142 H (60-115) mg/dL Calcium 8.5 8.7 (8.4-10.6) mg/dL Total Bilirubin 0.6 (0.1-1.5) mg/dL Direct Bilirubin 0.2 (0.0-0.5) mg/dL AST 79 H (12-35) U/L ALT 38 H (4-35) U/L Alkaline Phosphatase 121 (40-150) U/L Total Protein 5.6 L (6.0-8.3) g/dL Albumin 2.8 L (3.3-5.0) g/dL Urine Color Yellow (Yellow) Urine Appearance Cloudy A (Clear) Urine pH 6.5 (5.0-8.5) Ur Specific [place] 1.020 (1.000-1.030) Urine Protein 1+ A (Negative) Urine Glucose (UA) Negative (Negative) Urine Ketones 3+ A (Negative) Urine Blood 2+ A (Negative) Urine Nitrite Positive A (Negative) Urine Bilirubin Negative (Negative) Urine Urobilinogen 1.0 (0.2-1.0) Ur Leukocyte Esterase 3+ A (Negative) Urine RBC 5-10 A (0-2) Urine WBC 10-25 A (0-5) Urine WBC Clumps Few A (None) Ur Squamous Epith Cells Many A (None-Few) Urine Bacteria Many A (None) Vaginal Trichomonas (None Seen) Vaginal Yeast (None Seen) Vaginal Clue Cells (None Seen) Group B Strep DNA (Negative) 02/05/25 02/05/25 Range/Units 18:22 12:40 WBC 11.15 H (4.50-11.00) K/uL RBC 3.94 L (4.00-5.20) m/uL Hgb 11.7 L (12.0-16.0) gm/dL Hct 35.7 (33.0-51.0) % MCV 91 (80-100) fL MCH 30 (26-34) pg MCHC 33 (32-36) gm/dL RDW Coeff of Ayla 12.3 (11.5-15.5) % Plt Count 204 (140-440) K/uL Neut % (Auto) 82.7 H (42.0-72.0) % Lymph % (Auto) 8.7 L (20-44) % [place] % (Auto) 8.2 (0.0-11.0) % Eos % (Auto) 0.0 (0.0-7.0) % Baso % (Auto) 0.2 (0.0-3.0) % Neut # (Auto) 9.20 H (1.7-7.0) K/uL Lymph # (Auto) 1.00 (0.90-2.90) K/uL [place] # (Auto) 0.90 (0.00-0.90) K/UL Eos # (Auto) 0.00 (0.00-0.50) K/uL Baso # (Auto) 0.00 (0.00-0.30) K/uL Abs Immat Gran (auto) 0.00 (0.00-0.30) K/uL Imm/Tot Granulo (auto) 0.2 % Sodium (135-149) mmol/L Potassium (3.6-5.1) mmol/L Chloride (96-114) mmol/L Carbon Dioxide (20-32) mmol/L Anion Gap (7-15) mEq/L BUN (5-24) mg/dL Creatinine 0.7 (0.5-1.5) mg/dL Estimated GFR 121 ml/min Glucose (60-115) mg/dL Calcium (8.4-10.6) mg/dL Total Bilirubin (0.1-1.5) mg/dL Direct Bilirubin (0.0-0.5) mg/dL AST (12-35) U/L ALT (4-35) U/L Alkaline Phosphatase (40-150) U/L Total Protein (6.0-8.3) g/dL Albumin (3.3-5.0) g/dL Urine Color (Yellow) Urine Appearance (Clear) Urine pH (5.0-8.5) Ur Specific [place] (1.000-1.030) Urine Protein (Negative) Urine Glucose (UA) (Negative) Urine Ketones (Negative) Urine Blood (Negative) Urine Nitrite (Negative) Urine Bilirubin (Negative) Urine Urobilinogen (0.2-1.0) Ur Leukocyte Esterase (Negative) Urine RBC (0-2) Urine WBC (0-5) Urine WBC Clumps (None) Ur Squamous Epith Cells (None-Few) Urine Bacteria (None) Vaginal Trichomonas No Trichomonas Seen (None Seen) Vaginal Yeast No Yeast Seen (None Seen) Vaginal Clue Cells <20% Clue Cells Seen A (None Seen) Group B Strep DNA Negative (Negative) OB Problem List Additional Plan (1) Pyelonephritis affecting in third trimester: Problem details: Last fever at 2pm on 02/06. On zosyn for 48+ hours. Urine culture with live- sensitive E coli. Transition to complete total 10-day course of antibiotics on cefdinir. Overall clinically improving. Pain persists. Status: Acute (2) Hydronephrosis of right kidney: Problem details: MRI/CT showed: Moderate to severe right-sided hydroureteronephrosis likely related to compression of the mid to distal ureter between the right psoas and uterus. CT without ureteral stone. Urology noted they would only stent if stone at this stage in . Status: Acute (3) with 36 completed weeks gestation: Problem details: Patient had presented at 36.4 weeks gestation. GBS negative. Complicated by macrosomia (98th percentile). Status: Acute (4) Abdominal pain affecting : Problem details: MRI/CT shows right hydroureteronephrosis thought to be 2/[address] negative for stone. Pain is limiting and requiring Q6H oxycodone to manage. PT consulted for MSK support. Status: Acute (5) Bacterial vaginosis in : Problem details: Complete a 7-day course of PO BID metronidazole Status: Acute DS: Summary Vital Signs Vital Signs: Vital Signs Temp Pulse Resp BP Pulse Ox 02/08/25 13:38 18 02/08/25 13:38 99 02/08/25 13:37 99.2 F 16 02/08/25 13:37 56 L 117/75 02/08/25 10:04 16 02/08/25 09:46 98.2 F 75 16 113/63 02/08/25 07:04 97.4 F L 02/08/25 06:58 68 111/69 02/08/25 02:54 96 02/08/25 02:19 97.5 F L 70 103/57 L 02/07/25 23:00 20 02/07/25 21:50 98.2 F 20 97 02/07/25 21:50 68 136/76 02/07/25 20:07 98.6 F 16 98 02/07/25 20:07 70 104/62 02/07/25 18:27 98.6 F 20 02/07/25 18:27 68 106/69 02/07/25 15:35 97.5 F L 22 02/07/25 15:35 64 106/60 99 02/07/25 15:00 16 Discharge Examination Physical Examination findings: Gen: comfortable in bed with multiple pillows Resp: Breathing comfortably on room air. Abdo: gravid uterus is non-tender, R CVA tenderness, R paraspinous muscle tenderness Ext: trace edema present.
[2025-02-08] MEDS: ACETAMINOPHEN 500 MG TABLET 1000 MG PO (15:20)
--- NOTE | 2025-02-22 12:05 | PC.OBNST ---
NST Note NST Note Start: 02/22/25 11:56 Freq: Status: Discharge Protocol: Document 02/08/25 09:30 BRM (Rec: 02/22/25 12:04 BRM [id number]) NST Note 3 Para (# of births) 2 EDC 03/17/25 Gestational Age In 36 Weeks & 5 Days Weeks & Days Patient Presented Other with Complaint(s) of Other Complaints Antepartum observation due to severe hydronephrosis caused by uterus compression. Reactive Yes Appropriate for Yes Gestational Age KANE Bergeron MD Date 02/08/25 Reactive Yes Appropriate for Yes Gestational Age KANE Kenyon RN Date 02/08/25 OB NST charge Yes Complete NST Note Yes via Write Note The provider's electronic signature indicates the NST is reactive/appropriate for gestational age. *Note to provider: If an addendum is required, open the patient's chart and click on the note under the Nurse/Allied Health tab.
== END 2025-02-08 15:45 | disposition home or self-care (01) | DRG 566 ==
LOC: OB OUT 18:10 → OB 02-06 08:10
PROVIDERS: Family Medicine; Student in an Organized Health Care Education/Training Program; Admitting Provider Family Medicine; PCP Family Medicine; Visit Provider Family Medicine
DX: O23.03 Infections of kidney in pregnancy, third trimester (principal); N13.6 Pyonephrosis; B96.20 Unspecified Escherichia coli [E. coli] as the cause of diseases classified elsewhere; O23.593 Infection of other part of genital tract in pregnancy, third trimester; B96.89 Other specified bacterial agents as the cause of diseases classified elsewhere; O76 Abnormality in fetal heart rate and rhythm complicating labor and delivery; O36.63X0 Maternal care for excessive fetal growth, third trimester, not applicable or unspecified; R10.31 Right lower quadrant pain; Z3A.36 36 weeks gestation of pregnancy
CPT/HCPCS: 36415; 59025; 74176; 74181; 76819; 80048; 80076; 81001; 81003; 82565; 84450; 84460; 84520; 85025; 87081; 87086; 87210; 87653; G0463; A9270; G0378; G0379; J0696; J2405; J2543; J7030; J7120

== ENCOUNTER 2025-02-10 18:04 | Inpatient (IN) | payer BC, SELFPAY ==
[2025-02-10 18:11] VITALS: BMI 34.8
[2025-02-10 18:16] VITALS: PULSE 86; O2SAT 98
[2025-02-10 18:18] VITALS: BP 126/75; PULSE 75; RESP 16; TEMP 36.8
[2025-02-10 19:12] LABS: Hematocrit 34.3 % (33.0-51.0); Hemoglobin* 11.4 gm/dL (12.0-16.0); Immature Granulocytes Abs Auto 0.01 K/uL (0.00-0.30); Immature Granulocytes Pct Auto 0.2 %; Lymphocytes Absolute Auto 2.03 K/uL (0.90-2.90); Mean Corpuscular HGB Conc 33 gm/dL (32-36); Mean Corpuscular Hemoglobin 30 pg (26-34); Mean Corpuscular Volume 89 fL (80-100); RDW Coefficient of Variation % 12.3 % (11.5-15.5); Red Blood Count 3.85 m/uL (4.00-5.20); White Blood Count* 5.63 K/uL (4.50-11.00)
[2025-02-10 19:13] LABS: Slide Review Reflex No
[2025-02-10 19:20] VITALS: BP 115/75; PULSE 77; RESP 16; TEMP 36.4
--- NOTE | 2025-02-10 19:44 | PM.OBHPLI ---
OB - H&P: HPI Labor/Induction History of Present Illness Date Seen: 02/10/25 Chief Complaint: The patient is a 29 year old 3 para 2001 at 37 weeks gestation by US dating, who presents for IOL due to severe pain from hydrouretronephrosis caused by compression of the distal-mid ureter between the gravid uterus and psoas muscle. Chief complaint: IOL- Medical Indications for induction: other (see HPI) Narrative: The patient is a 29 year old 3 para 2001 at 37 weeks gestation by US dating, who presents for IOL due to severe pain from hydroureteronephrosis caused by compression of the distal-mid ureter between the gravid uterus and psoas muscle. Patient initially presented at 36+4 weeks with right flank and abdominal pain, fevers, dysuria. She had a UA positive for UTI. Due to severity of pain, an MRI obtained to r/o appendicitis. This showed hydroureteronephrosis caused by compression of the distal-mid ureter between the gravid uterus and psoas muscle. Urology was consulted, however at this stage of , they would only stent for a stone and recommended CT scan to r/o stone. CT was negative for stone. Although patient's fevers, sweats and urinary symptoms improved with IV zosyn and now oral cefdinir, she has continued to require oxycodone Q6 hours in addition to acetaminophen to manage pain. Discussed case with perinatology who agreed with IOL after 37 weeks due to severity of pain. History of Present Dating criteria: based on 1st trimester US only care: good care Ultrasounds: normal 1st trimester US and normal mid trimester US Abnormal ultrasound findings: 34 week US EFW [id number] (88 %) Medical complications: genitourinary (see HPI) Labs Blood type: O (+) positive Rubella: immune RPR/VDLR: nonreactive GBS status: negative HBsAG: negative Review of Systems Status of ROS: Reports: 6 or more systems reviewed and unremarkable except as noted in History and below Meds Home Medications and Allergies Home Medications ?Medication ?Instructions ?Recorded ?Confirmed ?Type cefdinir 300 mg capsule 300 mg PO BID 8 days #16 caps 02/08/25 Rx metronidazole 500 mg tablet 500 mg PO Q12H 4 days #8 tabs 02/08/25 Rx oxycodone 5 mg tablet 5 mg PO Q4H PRN For SEVERE Pain 3 02/08/25 Rx days #12 tabs Allergies Allergy/AdvReac Type Severity Reaction Status Date / Time azithromycin Allergy Unknown Verified 02/05/25 17:52 OB - H&P: Exam Physical Exam: Vital signs: Temp Pulse Resp BP Pulse Ox 97.6 F 77 16 115/75 98 02/10/25 19:20 02/10/25 19:20 02/10/25 19:20 02/10/25 19:20 02/10/25 18:16 Constitutional: Constitutional: no acute distress Routine HEENT Exam: Head: Present atraumatic and normal inspection Eye: Present EOMI and normal appearance ENT: Present mucous membranes moist Routine Neck Exam: Neck: Present full ROM Routine Respiratory Exam: Respiratory: Present CTA bilaterally Routine Cardiovascular Exam: Cardiovascular: RRR Routine Abdominal Exam: Comments: Gravid, soft, without tenderness. No CVA tenderness Detailed Labor and Delivery Exam: Patient Gravid: yes Dilation (cm): 1 Effacement (%): 70 Cervix position: mid Consistency: soft Cervical ripeness score: 7 Fetus (Single): Station: -2 Amniotic Membrane Status: intact Heart Rate Baseline: 150 Monitor Accelerations: Present Monitor Decelerations: None Proof Technician Helper Variability: Moderate (6-25) Routine Skin Exam: Present intact Routine Neurological Exam: Present alert, oriented X3 and CN II-XII intact Routine Psychiatric Exam: Present normal affect and normal thought process OB - Results Labs Labs: Short CBC 02/10/25 Range/Units 19:03 WBC 5.63 (4.50-11.00) K/uL Hgb 11.4 L (12.0-16.0) gm/dL Hct 34.3 (33.0-51.0) % Plt Count 220 (140-440) K/uL OB - Problem Based A/P Additional Plan (1) Pyelonephritis affecting in third trimester: Problem details: Last fever at 2pm on 02/06. On zosyn for 48+ hours. Urine culture with live-sensitive E coli. Transition to complete total 10-day course of antibiotics on cefdinir. Overall clinically improving. Pain persists. Status: Acute (2) Hydronephrosis of right kidney: Problem details: MRI/CT showed: Moderate to severe right-sided hydroureteronephrosis likely related to compression of the mid to distal ureter between the right psoas and uterus. CT without ureteral stone. Urology noted they would only stent if stone at this stage in . Status: Acute (3) Term : Status: Acute (4) Abdominal pain affecting : Problem details: MRI/CT shows right hydroureteronephrosis thought to be 2/[address] negative for stone. Pain is limiting and requiring Q6H oxycodone to manage. PT consulted for MSK support. Status: Acute Plan Given favorable cervix, will start vaginal misoprostol. Continue cefdinir for pyelonephritis and metronidazole for BV. Will continue acetaminophen and oxycodone for pain control until able to get epidural in active labor. Anticipate . Delivery/Labor/Induction Plan Plan: induction Induction method: per misoprostol protocol
[2025-02-10] MEDS: CALCIUM CARBONATE 500 MG CHEW PO (21:01)
[2025-02-10] MEDS: CEFDINIR 300 MG 300 EACH PO (21:29)
[2025-02-11] VITALS (126 sets, daily range): BP systolic 81–133; BP diastolic 50–78; PULSE 55–120; RESP 16–18; TEMP 36.3–37; O2SAT 91–100
[2025-02-11] MEDS: CALCIUM CARBONATE 500 MG CHEW PO ×2 (00:19→19:46)
[2025-02-11] MEDS: ONDANSETRON 2 MG/ML inj 4 MG IV (00:24)
[2025-02-11] MEDS: LACTATED RINGERS 1000 ML 1,000 ML 500 ML IV (01:39)
[2025-02-11] MEDS: OXYTOCIN 30 unit/500 ML in NS 30 UNIT/500 ML BAG IVPB (06:26)
[2025-02-11] MEDS: LACTATED RINGERS 1000 ML 1,000 ML 125 ML IV ×2 (07:06→15:57)
[2025-02-11] MEDS: CEFDINIR 300 MG 300 EACH PO ×2 (09:05→21:11)
--- NOTE | 2025-02-11 11:48 | PM.OBPNL ---
Subjective Date Seen: 02/11/25 Narrative: Felicia is 29 yo at 37 weeks here for IOL for symptomatic right hydronephrosis. She received 2 doses of cytotec overnight, however due to late decelerations, no additional doses were given. This morning, patient had a category 1 FHT and decision made to transition to IV pitocin for ease of stopping if decels recurred. She is feeling contractions, now but not very painful. She underwent AROM with return of moderate amount of clear fluid. Objective Vital Signs: Last Vital Signs Temp 97.4 F L 02/11/25 10:40 Pulse 55 L 02/11/25 10:37 Resp 16 02/11/25 10:40 BP 102/58 L 02/11/25 10:37 Pulse Ox 97 02/11/25 10:37 Pelvic Exam Dilation (cm): 3 Effacement (%): 80 Station: -2 Contractions Monitor mode: External Contraction Frequency: Q2-8 Contraction pattern: Irregular Contraction intensity: Moderate Pitocin Rate (mU/min): 4 Assessment Assessment: induction ongoing Station: -2 Amniotic Membrane Status: AROM Heart Rate Baseline: 150 Life Skills Coordinator Volunteer Variability: Moderate (6-25) Monitor Accelerations: Present Monitor Decelerations: None Tracing Comments: difficult to keep FHTs and contractions on monitor Plan Plan: Continue pitocin per protocol as tolerated. Epidural per patient request. Anticipate .
[2025-02-11] MEDS: LACTATED RINGERS 1000 ML 1,000 ML 1200 ML IV (13:16)
[2025-02-11] MEDS: ROPIVACAINE 0.2% 100 ml 100 ML 12 MG EPIDURAL (14:04)
[2025-02-11] MEDS: LIDOCAINE 2% (PF) 5 ML VIAL EPIDURAL (14:05)
--- NOTE | 2025-02-11 14:13 | PM.ANBPRC ---
[facility] Medical History (normal spontaneous vaginal delivery) ?O80 - Encounter for full-term uncomplicated delivery (ICD-10) Varicella ?B01.9 - Varicella without complication (ICD-10) Surgical History History of dental surgery ?Z92.89 - Personal history of other medical treatment (ICD-10) Status post ORIF of fracture of ankle ?Z98.890 - Other specified postprocedural states (ICD-10) ?Z87.81 - Personal history of (healed) traumatic fracture (ICD-10) H/O hernia repair ?Z98.890 - Other specified postprocedural states (ICD-10) ?Z87.19 - Personal history of other diseases of the digestive system (ICD-10) Social History What is your current living situation?: I presently have a place to live Problems where you live: no known problems In the past 12 months, utilities in danger of being shut off: no In past 12 months, lack of transportation kept you from medical appts, meetings, work, or getting things needed for daily living: no In the past 12 mos, have been you worried that your food would run out before you had money to buy more?: never true In the past 12 mos, the food you bought just didn't last and you didn't have money to buy more?: never true Smoking Status: Never smoker How often does anyone, including family, friends and others, physically hurt you: never How often does anyone, including family, friends and others, insult or talk down to you: never How often does anyone, including family, friends and others, threaten you with harm: never How often does anyone, including family, friends and others, scream or curse at you: never Meds Home Medications and Allergies Home Medications ?Medication ?Instructions ?Recorded ?Confirmed ?Type cefdinir 300 mg capsule 300 mg PO BID 8 days #16 caps 02/08/25 Rx metronidazole 500 mg tablet 500 mg PO Q12H 4 days #8 tabs 02/08/25 Rx oxycodone 5 mg tablet 5 mg PO Q4H PRN For SEVERE Pain 3 02/08/25 Rx days #12 tabs Allergies Allergy/AdvReac Type Severity Reaction Status Date / Time azithromycin Allergy Unknown Verified 02/05/25 17:52 Results Labs Labs: Laboratory Results - last 24 hr 02/10/25 02/10/25 19:03 23:10 WBC 5.63 RBC 3.85 L Hgb 11.4 L Hct 34.3 MCV 89 MCH 30 MCHC 33 RDW Coeff of Ayla 12.3 Plt Count 220 Neut % (Auto) 54.4 Lymph % (Auto) 36.1 [place] % (Auto) 8.0 Eos % (Auto) 1.1 Baso % (Auto) 0.2 Neut # (Auto) 3.07 Lymph # (Auto) 2.03 [place] # (Auto) 0.50 Eos # (Auto) 0.06 Baso # (Auto) 0.01 Abs Immat Gran (auto) 0.01 Imm/Tot Granulo (auto) 0.2 Blood Type O Positive Antibody Screen NEGATIVE Vital Signs Vital Signs: Last Vital Signs Temp 97.5 F L 02/11/25 11:56 Pulse 63 02/11/25 14:13 Resp 16 02/11/25 10:40 BP 111/64 02/11/25 14:13 Pulse Ox 99 02/11/25 14:10 Weight: 95.028 kg Height: 165.1 cm Anesthesia Procedures Epidural Insertion Patient Location: OB Start Time: 13:45 Stop Time: 14:15 Start Date: 02/11/25 Stop Date: 02/11/25 Reason for Block: primary anesthetic Patient Position: sitting Performed By: Aman Salgado Preanesthetic Checklist: IV checked, risks and benefits discussed, surgical consent, monitors and equipment checked, pre-op evaluation, timeout performed and anesthesia consent Prep: chlorhexidine gluconate Monitoring: blood pressure monitoring, traveling auditor, continuous pulse oximetry and heart rate Approach: midline Vertebral Space: lumbar (1-5) Needle Type: Tuohy needle Injection Technique: continuous catheter (catheter) Needle gauge: 17 Needle Length (cm): 10 cm Needle Insertion Depth (cm): 5 Catheter Gauge: 19 Catheter Type: multi-orifice Catheter at skin depth (cm): 10 Test Dose Result: negative and lidocaine 1.5% with epinephrine 1 to 200,000
--- NOTE | 2025-02-11 16:55 | P.OBPN_ITS ---
Subjective Date Seen: 02/11/25 Narrative: Felicia is a at 37+1 weeks here for IOL for symptomatic hydrour eteronephrosis. She had increased intensity of contractions after AROM, and now is comfortable with an epidural. She is feeling intermittent pressure from the urinary catheter, but is otherwise comfortable. It has been difficult to titrate pitocin due to intermittent variable and late decelerations. Objective Vital Signs: Last Vital Signs Temp 97.5 F L 02/11/25 15:27 Pulse 66 02/11/25 16:48 Resp 16 02/11/25 15:27 BP 95/50 L 02/11/25 16:48 Pulse Ox 98 02/11/25 16:50 Pelvic Exam Dilation (cm): 4.5 Effacement (%): 90 Station: -1 Contractions Monitor mode: External Contraction pattern: Irregular Contraction intensity: Moderate Pitocin Rate (mU/min): 6 Assessment Assessment: induction ongoing Station: -1 Amniotic Membrane Status: AROM Status: Category l Heart Rate Baseline: 140 Database Reporting Consultant Variability: Moderate (6-25) Monitor Accelerations: Present Monitor Decelerations: Variable Plan Plan: Recommend increasing pitocin per protocol. Will watch FHTs carefully given intermittent decelerations, but patient has a history of fast labors so hopefully will be able to deliver vaginally once in active labor.
[2025-02-11] MEDS: ePHEDrine sulfate 5 MG/ML inj 10 MG IVP (17:09)
[2025-02-11] MEDS: PHENYLEPHRINE 100 MCG/ML SYRINGE IVP ×3 (17:25→17:37)
[2025-02-11] MEDS: OXYTOCIN 30 unit/500 ML in NS 30 UNIT/500 ML BAG 300 UNIT IVPB (19:03)
--- NOTE | 2025-02-11 19:22 | W.PM.VAGDEL1 ---
Procedure Delivery date: 02/11/25 Procedure Done: Global Events: Labor Induction (For symptomatic right hydroureteronephrosis) Intrapartal Events: Labor Induction Delivery augmentation: rupture of membranes Delivery monitor: external FHT and external uterine Route of delivery: Laceration description: Perineal - 1st Degree Delivery repair: Vicryl Estimated blood loss (mL): 100 Anesthesia type: Epidural Disposition: floor Narrative: The patient is a 29 year-old admitted on 02/10/2025 at 37 Weeks, 0 Days gestation for IOL for symptomatic right hydroureteronephrosis.? Cervical exam on admission was 1 cm/70 % effaced/-2 station with membranes intact in vertex presentation.? Contractions were intermittent.? heart rate demonstrated baseline 140 bpm with moderate variability, + accelerations, - decelerations; a category 1 tracing.? Patient recieved cytotec x 2 doses, however due to periods of variable and late decelerations, transitioned to IV pitocin around 0600. AROM occurred at 1140 with clear fluid. ? Labor Analgesia:? epidural ? Pitocin:? yes ? Labor onset:? 1700 ? Complete:? 185 ? Pushing:? 185 ? heart tones during second stage were category 2. ? At 190 a viable male delivered in vertex OA presentation over intact perineum via spontaneous vaginal delivery.?There was a loose nuchal cord x1 reduced at perineum. Infant was placed on maternal abdomen.? Cord was clamped and cut after a 30-60 second delay.? Nose and mouth were bulb suctioned.? Infant weight pending.? 7 at 1 minute and 9 at 5 minutes.? Shoulder dystocia: no.? Nuchal cord: yes x1. ? Placenta delivered spontaneously and complete at 1906 with a 3 vessel cord. ? Mother and were stable after delivery. ? Lacerations:? 1st degree perineal, repaired with 3-0 vicryl suture. ? Blood loss: 100 mL. Blood loss measurement type: QBL ? Sponge and needles counts are correct. Infant Gender: Male presentation: vertex Placental Delivery Description: Spontaneous Cord Description: 3 Vessels, Nuchal Cord, Loose and Reduced
[2025-02-11] MEDS: IBUPROFEN 600 MG TABLET PO (21:11)
[2025-02-12 01:26] VITALS: BP 116/74; PULSE 64; RESP 16; TEMP 36.6; O2SAT 97
[2025-02-12] MEDS: IBUPROFEN 600 MG TABLET PO ×3 (03:12→18:02)
[2025-02-12 04:43] VITALS: BP 100/65; PULSE 56; RESP 16; TEMP 36.3; O2SAT 97
[2025-02-12 07:31] LABS: Hemoglobin* 10.2 gm/dL (12.0-16.0)
[2025-02-12 07:45] VITALS: BP 114/73; PULSE 63; RESP 16; TEMP 36.3; O2SAT 98
[2025-02-12 07:53] LABS: Chloride* 107 mmol/L (96-114); Potassium* 3.7 mmol/L (3.6-5.1); Sodium* 134 mmol/L (135-149)
[2025-02-12 07:56] LABS: Anion Gap 2 mEq/L (7-15); Blood Urea Nitrogen* 7 mg/dL (5-24); Carbon Dioxide* 25 mmol/L (20-32); Creatinine* 0.7 mg/dL (0.5-1.5); Est. Creatinine Clearance* 107.67; Estimated Glomerular Filt Rate 121 ml/min
[2025-02-12 07:57] LABS: Calcium* 8.7 mg/dL (8.4-10.6); Glucose* 81 mg/dL (60-115)
[2025-02-12] MEDS: DOCUSATE SODIUM 100 MG CAPSULE PO (08:03)
[2025-02-12] MEDS: ACETAMINOPHEN 500 MG TABLET 1000 MG PO ×2 (08:03→14:06)
[2025-02-12] MEDS: CEFDINIR 300 MG 300 EACH PO (08:04)
--- NOTE | 2025-02-12 10:49 | PM.ANPOST ---
Post Anesthesia Note Post Anesthesia Note Patient seen: Inpatient Respiratory Status: adequate Cardiovascular Status: adequate Mental Status: baseline Pain: adequate Temp: baseline Anesthetic awareness: N/A Complications: none Follow care: none
[2025-02-12 11:00] VITALS: BP 122/83; PULSE 60; RESP 16; TEMP 36.6; O2SAT 97
[2025-02-12 16:57] VITALS: BP 116/77; PULSE 57; RESP 17; TEMP 36.7; O2SAT 97
--- NOTE | 2025-02-12 19:50 | P.DS_ITS ---
DS: Providers Provider Time Seen by Provider: 07:00 Date Seen: 02/12/25 Date of admission: 02/10/25 18:04 Primary care physician: Khushboo Lane MD Admitting Clinician: Khushboo Lane MD Attending Physician on discharge: Sade Gómez MD Date of Discharge: 02/12/25 DS: Diagnosis Discharge Diagnosis (1) Bacterial vaginosis in : Status: Acute Problem details: Completed a 7-day course of PO BID metronidazole (2) Pyelonephritis affecting in third trimester: Status: Acute Problem details: Last fever at 2pm on 02/06. On zosyn for 48+ hours. Urine culture with live- sensitive E coli. Transition to complete total 10-day course of antibiotics on cefdinir. Overall clinically improving following delivery. Will complete 10 day course of abx. (3) Hydronephrosis of right kidney: Status: Acute Problem details: MRI/CT showed: Moderate to severe right-sided hydroureteronephrosis likely related to compression of the mid to distal ureter between the right psoas and uterus. CT without ureteral stone. Urology noted they would only stent if stone at this stage in . Pain improved dramatically after delivery. Doing much better. Diuresing today, BMP on day of discharge reassuring. (4) (normal spontaneous vaginal delivery): Status: Acute Problem details: after IOL at 37 weeks for persistent pain from hydroureternephrosis. Exam Const: Vital Signs, click to edit/add: Vital Signs - 24 hr 02/11/25 19:51 02/11/25 20:06 02/11/25 20:21 Temperature Pulse Rate 62 65 65 Pulse Rate [Pulse Oximeter] Respiratory Rate Blood Pressure 112/55 L 117/66 119/64 Blood Pressure [Ri ght Arm] Pulse Oximetry Oxygen Delivery Me thod 02/11/25 20:36 02/11/25 20:47 02/12/25 01:26 Temperature 97.9 F Pulse Rate 60 56 L Pulse Rate [Pulse Oximeter] 64 Respiratory Rate 16 Blood Pressure 115/66 127/73 Blood Pressure [Ri ght Arm] 116/74 Pulse Oximetry 97 Oxygen Delivery Me thod Room Air 02/12/25 04:43 02/12/25 07:45 02/12/25 11:00 Temperature 97.4 F L 97.4 F L 97.9 F Pulse Rate Pulse Rate [Pulse Oximeter] 56 L 63 60 Respiratory Rate 16 16 16 Blood Pressure Blood Pressure [Ri ght Arm] 100/65 114/73 122/83 Pulse Oximetry 97 98 97 Oxygen Delivery Me thod Room Air Room Air Room Air 02/12/25 16:57 Temperature 98.1 F Pulse Rate Pulse Rate [Pulse Oximeter] 57 L Respiratory Rate 17 Blood Pressure Blood Pressure [Ri ght Arm] 116/77 Pulse Oximetry 97 Oxygen Delivery Me thod Room Air Documenting provider has reviewed patient's vital signs: yes Common normals: no apparent distress and oriented x3 HENMT: Common normals: normocephalic and head/scalp atraumatic Head and scalp: normocephalic and atraumatic Resp: Common normals: normal respiratory effort and clear to auscultation bilaterally Auscultation: clear to auscultation bilaterally Cardio: Common normals: regular rate, regular rhythm and no murmurs Rate: regular rate Rhythm: regular rhythm GI: Common normals: Normal to inspection, nondistended, normoactive bowel sounds present and soft to palpation Palpation: soft : Common normals: no CVA tenderness Bladder/kidney exam: no CVA tenderness Uterus: U/2 and firm Back & Pelvis: Common normals: no CVA tenderness Neuro: Common normals: oriented x3 OB - DS: Summary Hospital Course Hospital Course: The patient is a 29 year old G 3 P 3 at 37 weeks gestation that was admitted to the Center on 02/10/25 for IOL following 1 week of severe pain from hydroureteronephrosis and pyelonephritis. She had an uncomplicated vaginal delivery. She delivered a viable male infant. She is breast feeding. the patient has done well. Her pain improved dramatically. She started having increased Urine output. Cr and electrolytes stable. Peripartum Data delivery method: Vaginal Laceration description: Vaginal - 1st Degree complications: none Gender: Male Infant Discharge Plan: Home Time Spent with Patient Time attestation: Total time spent providing and/or coordinating discharge services: Time spent: Less than 30 minutes Discharge Plan Discharge Disposition: Home, Self-Care Date of Admission: 02/10/25 18:04 Attending Provider on Discharge: Sade Gómez Consulting Providers: Khushboo Lane Primary Care Provider: Khushboo Lane Condition: Improved Anticipated Discharge Date/Time: 02/12/25 19:44 Discharge Medications: Continued oxycodone 5 mg Tablet 5 mg PO Q4H PRN (Reason: For SEVERE Pain) 3 Days Qty: 12 0RF cefdinir 300 mg capsule 300 mg PO BID 8 Days Qty: 16 0RF Discontinued metronidazole 500 mg Tablet 500 mg PO Q12H 4 Days Qty: 8 0RF Discharge Orders: Discharge Order (Routine); Ordered 02/12/25 Ordered By: Sade Gómez Patient Education: OB Vaginal/Breast Feeding Additional Instructions: Use tylenol/motrin for pain as needed. Use oxycodone for severe pain. Call with any concerns of decreased urine output or increased swelling. Please follow up with Dr. Lane 2 weeks and 6 weeks . Activity Level: Activity as Tolerated Activity Detail: Pelvic rest x 6 weeks, nothing in the vagina. Discharge Diet: Regular Follow Up Appointments: Khushboo Lane MD [Primary Care Provider, Family Practice] Forms: Patient Belongings, [facility] Info Instructions Discharge Comments: Use tylenol/motrin for pain as needed. Use oxycodone for severe pain. Call with any concerns of decreased urine output or increased swelling. Please follow up with Dr. Lane 2 weeks and 6 weeks .
== END 2025-02-12 20:43 | disposition home or self-care (01) | DRG 560 ==
PROVIDERS: Family Medicine; Admitting Provider Student in an Organized Health Care Education/Training Program; PCP Family Medicine; Visit Provider Student in an Organized Health Care Education/Training Program
DX: O98.82 Other maternal infectious and parasitic diseases complicating childbirth (principal); N10 Acute pyelonephritis; N13.6 Pyonephrosis; B96.20 Unspecified Escherichia coli [E. coli] as the cause of diseases classified elsewhere; O23.593 Infection of other part of genital tract in pregnancy, third trimester; O70.0 First degree perineal laceration during delivery; Z3A.37 37 weeks gestation of pregnancy; Z37.0 Single live birth
CPT/HCPCS: 01967; 36415; 59200; 80048; 85018; 85025; 86592; 86850; 86900; 86901; A9270; J2405; J2795; J7120